=== PATIENT | female | born 2005 | race Caucasian/White ===

== ENCOUNTER 2025-02-17 13:52 | Emergency (ER) | payer MEDICAID, OTHER ==
[~2025-02-17] VITALS: Ht 170.2 cm; Wt 54.4 kg
[2025-02-17] MEDS ORDERED: FAMOTIDINE/PF INJ 20 MG/2 ML VIAL IV ONE (14:32)
[2025-02-17] MEDS ORDERED: DICYCLOMINE HCL 10 MG CAPSULE PO ONE (14:32)
[2025-02-17] MEDS ORDERED: ONDANSETRON HCL/PF 4 MG/2 ML VIAL ONE (14:32)
[2025-02-17] MEDS ORDERED: PANTOPRAZOLE 40 MG VIAL ONE (14:32)
[2025-02-17] MEDS: IV NS 0.9% 1,000 ML BAG IV ONE (15:00)
[2025-02-17] MEDS: DICYCLOMINE HCL 10 MG CAPSULE PO ONE (15:01)
[2025-02-17] MEDS: PANTOPRAZOLE 40 MG VIAL IV ONE (15:01)
[2025-02-17] MEDS: FAMOTIDINE/PF INJ 20 MG/2 ML VIAL IV ONE (15:01)
[2025-02-17] MEDS: ONDANSETRON HCL/PF 4 MG/2 ML VIAL IVP ONE (15:01)
[2025-02-17 15:06] LABS: APPEARANCE,URINE CLEAR (CLEAR); BLOOD, URINE NEGATIVE Ery/uL (NEGATIVE); LEUKOCYTE ESTERASE ,URINE 1+ (NEGATIVE); NITRITE, URINE NEGATIVE (NEGATIVE); UGLUCOSE NEGATIVE (NEGATIVE)
[2025-02-17 15:11] LABS: PREGNANCY TEST URINE QUAL NEGATIVE (NEGATIVE)
[2025-02-17 15:15] LABS: PLATELET COUNT (AUTO) 282 K/uL (150-450); RED BLOOD CELL COUNT(AUTO) 4.81 MIL/uL (4.0-5.2); RED CELL DISTRIBUTION WIDTH 14.1 % (11.5-15.0); WHITE BLOOD COUNT (AUTO) 5.6 K/uL (4.3-11.0)
[2025-02-17 15:26] LABS: CALCIUM, SERUM 8.9 mg/dL (8.5-10.1); CREATININE 0.6 mg/dL (0.6-1.3); SODIUM SERUM 140.0 mmol/L (136-145); UREA NITROGEN, BLOOD 8.0 mg/dL (7-18)
[2025-02-17 15:26] LABS: ADD URINE CULTURE YES
[2025-02-17 15:32] LABS: ASPARTATE AMINOTRANSFERASE 20.0 U/L (15-37); TOTAL PROTEIN, SERUM 7.9 g/dL (6.4-8.2)
[2025-02-17] MEDS ORDERED: PANT40TA49 PO (16:04)
[2025-02-17] MEDS ORDERED: DICY10CA37 PO (16:04)
[2025-02-17] MEDS ORDERED: CEPH-570 PO (16:04)
[2025-02-17] MEDS ORDERED: ONDA4TAB5 PO (16:04)
[2025-02-17] MEDS ORDERED: FAMO-131 PO (16:04)
[2025-02-17 16:13] VITALS: BP 115/82; TEMP 98.5; O2SAT 98
== END 2025-02-17 16:22 | disposition home or self-care (01) ==
LOC: ER 14:09
DX: N39.0 Urinary tract infection, site not specified (principal); R11.2 Nausea with vomiting, unspecified; Z79.899 Other long term (current) drug therapy
CPT/HCPCS: 99284; 96374; 96375; 96361; 85025; 80048; 87086; 83690; 80076; 84703; 81001; 36415; J1308; J2405; J7030; J2470